=== PATIENT | female | born 1965 | race Caucasian/White ===

== ENCOUNTER 2017-08-11 13:14 | Emergency (ER) | payer OTHER ==
[~2017-08-11] VITALS: Ht 167.6 cm; Wt 63.5 kg
[2017-08-11 13:15] VITALS: BP 124/83; PULSE 63; RESP 14; TEMP 98.4; O2SAT 99
--- NOTE | 2017-08-11 14:00 | PD ---
HPI Chief Complaint: Chest Pain Time Seen by Provider: 13:32 Travel History International Travel<30 days: No Contact w/Intl Traveler<30days: No Traveled to known affect area: No History of Present Illness HPI The patient was seen and examined in the presence of the nurse. This patient complains of chest pain. Location is low center sternum. Started about 20 minutes prior to arrival. Lasted about 10 minutes and resolved. She had drank coffee just prior to the pain. Denies history of GERD or peptic ulcer disease. Severity was moderate but resolved on its own. No alleviating factors. No Exacerbating factors. Denies history of cardiac disease or stress testing. PFSH Past Medical History Hx Anticoagulant Therapy: No Cardiovascular Problems: Yes (MITRAL VALVE PROLAPSE ) Chemotherapy: No Cerebrovascular Accident: Yes Diabetes: Yes Respiratory: No Tetanus Vaccination: Unknown Influenza Vaccination: No ?: Not LMP: pt can't remember Menopausal: Yes Past Surgical History Section: Yes Cholecystectomy: Yes Hysterectomy: No Social History Alcohol Use: Yes (RARELY ) Tobacco Use: Yes (1 PPD ) Substance Use: No Allergies-Medications (Allergen,Severity, Reaction): Coded Allergies: acetaminophen (Verified Allergy, Intermediate, Nausea/Vomiting, 08/11/17) codeine (Verified Allergy, Intermediate, Nausea/Vomiting, 08/11/17) hydromorphone (Verified Allergy, Intermediate, Itching, 08/11/17) oxycodone (Verified Allergy, Intermediate, Nausea/Vomiting, 08/11/17) povidone-iodine (Verified Allergy, Intermediate, Hives, 08/11/17) silver sulfadiazine (Verified Allergy, Intermediate, Irritation, 08/11/17) soap (Verified Allergy, Intermediate, Hives, 08/11/17) sulfamethoxazole (Verified Allergy, Intermediate, Nausea/Vomiting, 08/11/17 ) trimethoprim (Verified Allergy, Intermediate, Nausea/Vomiting, 08/11/17) Review of Systems General / Constitutional: No: Fever Eyes: No: Visual changes HENT: No: Headaches Cardiovascular: Positive: Chest Pain or Discomfort Respiratory: No: Shortness of Breath Gastrointestinal: No: Abdominal Pain Genitourinary: No: Dysuria Musculoskeletal: No: Pain Skin: No Rash Neurologic: No: Weakness Psychiatric: No: Depression Endocrine: No: Polydipsia Hematologic/Lymphatic: No: Easy Bruising Physical Exam Narrative GENERAL: Well-nourished, well-developed patient in no apparent distress. SKIN: Focused skin assessment reveals no rash and nodules. Skin is Warm and dry. HEAD: Atraumatic. Normocephalic. EYES: Pupils equal and round. No scleral icterus. No injection or drainage. ENT: No nasal bleeding or discharge. Mucous membranes pink and moist. NECK: Trachea midline. No JVD. CARDIOVASCULAR: Regular rate and rhythm. No murmur appreciated. RESPIRATORY: No accessory muscle use. Clear to auscultation. Breath sounds equal bilaterally. GASTROINTESTINAL: Abdomen soft, non-tender, nondistended. Hepatic and splenic margins not palpable. MUSCULOSKELETAL: No obvious deformities. No clubbing. No cyanosis. No edema. NEUROLOGICAL: Awake and alert. No obvious cranial nerve deficits. Motor grossly within normal limits. Normal speech. PSYCHIATRIC: Appropriate mood and affect; insight and judgment normal. Data Data Last Documented VS Vital Signs Date Time Temp Pulse Resp B/P (MAP) Pulse Ox O2 Delivery O2 Flow Rate FiO2 08/11/17 14:21 97 Room Air 08/11/17 13:46 56 18 08/11/17 13:15 98.4 Orders Orders Electrocardiogram (08/11/17 ) Basic Metabolic Panel (Bmp) (08/11/17 13:53) Ckmb (Isoenzyme) Profile (08/11/17 13:53) Complete Blood Count With Diff (08/11/17 13:53) Magnesium (Mg) (08/11/17 13:53) Prothrombin Time / Inr (Pt) (08/11/17 13:53) Act Partial Throm Time (Ptt) (08/11/17 13:53) Troponin I (08/11/17 13:53) Chest, Single Ap (08/11/17 13:53) Ecg Monitoring (08/11/17 13:53) Iv Access Insert/Monitor (08/11/17 13:53) Oximetry (08/11/17 13:53) Labs Laboratory Tests Test 08/11/17 14:15 White Blood Count 8.1 TH/MM3 Red Blood Count 4.32 MIL/MM3 Hemoglobin 13.5 GM/DL Hematocrit 39.7 % Mean Corpuscular Volume 91.9 FL Mean Corpuscular Hemoglobin 31.3 PG Mean Corpuscular Hemoglobin Concent 34.1 % Red Cell Distribution Width 13.6 % Platelet Count 293 TH/MM3 Mean Platelet Volume 7.7 FL Neutrophils (%) (Auto) 57.1 % Lymphocytes (%) (Auto) 31.8 % Monocytes (%) (Auto) 7.2 % Eosinophils (%) (Auto) 3.4 % Basophils (%) (Auto) 0.5 % Neutrophils # (Auto) 4.6 TH/MM3 Lymphocytes # (Auto) 2.6 TH/MM3 Monocytes # (Auto) 0.6 TH/MM3 Eosinophils # (Auto) 0.3 TH/MM3 Basophils # (Auto) 0.0 TH/MM3 CBC Comment DIFF FINAL Differential Comment Prothrombin Time 11.1 SEC Prothromb Time International Ratio 1.1 RATIO Activated Partial Thromboplast Time 23.8 SEC Blood Urea Nitrogen 16 MG/DL Creatinine 0.72 MG/DL Random Glucose 109 MG/DL Calcium Level 8.5 MG/DL Magnesium Level 1.8 MG/DL Sodium Level 141 MEQ/L Potassium Level 3.6 MEQ/L Chloride Level 107 MEQ/L Carbon Dioxide Level 29.4 MEQ/L Anion Gap 5 MEQ/L Estimat Glomerular Filtration Rate 86 ML/MIN Total Creatine Kinase 76 U/L Troponin I LESS THAN 0.02 NG/ML MDM Medical Decision Making Medical Screen Exam Complete: Yes Emergency Medical Condition: Yes Medical Record Reviewed: Yes Differential Diagnosis Differential diagnosis includes [place], angina, pericarditis, pleurisy, GERD, anxiety. Narrative Course I have reviewed the patient's electronic medical record. IV placed I reviewed the EKG shows sinus rhythm with no ST elevation I reviewed the chest x-ray is normal Extended cardiac monitoring shows sinus rhythm without ectopy CBC is normal Metabolic profile is normal CK is normal Troponin is normal Coagulation studies are normal She had aspirin prior to arrival Patient's workup here is negative. However she does have risk factors and atypical chest pain and is never been evaluated. Am recommending chest pain center observation but she thought about it and will decline. She is going to sign out AGAINST MEDICAL ADVICE. I've advised her to return if she worsens or changes her mind. She should discuss with her physician Sunday morning. We reviewed the risks Diagnosis Primary Impression: Chest pain in adult Disposition: 07 AGAINST MEDICAL ADVICE Rogelio Encinas MD Aug 11, 2017 14:00
--- NOTE | 2017-08-11 14:20 | RADRPT ---
EXAM DATE/TIME: 08/11/2017 14:08 [facility] COMPARISON: No previous studies available for comparison. INDICATIONS : Chest pain. MEDICAL HISTORY : Mitral valve prolapse. SURGICAL HISTORY : None. ENCOUNTER: Initial ACUITY: 1 day PAIN SCORE: 10/10 LOCATION: Bilateral chest FINDINGS: A single view of the chest demonstrates the lungs to be symmetrically aerated without evidence of mas s, infiltrate or effusion. The cardiomediastinal contours are unremarkable. Osseous structures are intact. CONCLUSION: No acute disease. Noah López MD on August 11, 2017 at 14:19 Board Certified Radiologist. This report was verified electronically.
[2017-08-11 14:21] VITALS: O2SAT 97
[2017-08-11 14:27] LABS: AUTOMATED NEUTROPHIL # 4.6 TH/MM3 (1.8-7.7); BASOPHIL % 0.5 % (0.0-2.0); EOSINOPHIL # 0.3 TH/MM3 (0-0.4); EOSINOPHIL % 3.4 % (0.0-4.0); HEMATOCRIT 39.7 % (35.0-46.0); HEMO FLAGS DIFF FINAL; LYMPH % 31.8 % (9.0-44.0); LYMPHOCYTE # 2.6 TH/MM3 (1.0-4.8); MEAN CELL VOLUME 91.9 FL (80.0-100.0); MEAN CORPUSCULAR HEMOGLOBIN 31.3 PG (27.0-34.0); MEAN CORPUSCULAR HGB CONC 34.1 % (32.0-36.0); MONO % 7.2 % (0.0-8.0); NEUT % 57.1 % (16.0-70.0); PLATELET COUNT 293 TH/MM3 (150-450); RED BLOOD COUNT 4.32 MIL/MM3 (4.00-5.30); RED CELL DISTRIBUTION WIDTH 13.6 % (11.6-17.2); WHITE BLOOD COUNT 8.1 TH/MM3 (4.0-11.0)
[2017-08-11 14:37] LABS: APTT (PATIENT) 23.8 SEC (24.3-30.1); INTERNATIONAL NORMALIZED RATIO 1.1 RATIO; PROTHROMBIN TIME - PATIENT 11.1 SEC (9.8-11.6)
[2017-08-11 14:51] LABS: ANION GAP 5 MEQ/L (5-15); BICARBONATE 29.4 MEQ/L (21.0-32.0); BLOOD UREA NITROGEN 16 MG/DL (7-18); CHLORIDE 107 MEQ/L (98-107); GLOMERULAR FILTRATION RATE 86 ML/MIN (>89); MAGNESIUM 1.8 MG/DL (1.5-2.5); POTASSIUM 3.6 MEQ/L (3.5-5.1); SODIUM (NA) 141 MEQ/L (136-145)
[2017-08-11 15:17] LABS: CREATINE KINASE 76 U/L (26-192)
--- NOTE | 2017-08-12 12:18 | EKG ---
Date Performed: 08/11/2017 Time Performed: 13:37:43 PTAGE: 52 years EKG: SINUS BRADYCARDIA POSSIBLE LEFT ATRIAL ENLARGEMENT BORDERLINE ECG NO PREVIOUS TRACING DOCTOR: Amos Dias Interpretating Date/Time 08/12/2017 12:17:24
== END 2017-08-11 16:14 | disposition left against medical advice (07) ==
LOC: NEPC 13:14
DX: R07.9 Chest pain, unspecified (principal); F17.200 Nicotine dependence, unspecified, uncomplicated; R00.1 Bradycardia, unspecified
CPT/HCPCS: 71010; 80048; 82550; 83735; 84484; 85025; 85610; 85730; 93005; 99285